=== PATIENT | male | born 1950 | race Caucasian/White ===

== ENCOUNTER → 2019-08-11 | Outpatient (CLI) | payer MEDICARE | END | disposition home or self-care (01) | LOC: RAH 10:17 | PROVIDERS: ATTEND Orthopaedic Surgery | DX: M19.012 Primary osteoarthritis, left shoulder (principal); M75.102 Unspecified rotator cuff tear or rupture of left shoulder, not specified as traumatic | CPT/HCPCS: 73221 ==

== ENCOUNTER 2023-08-25 07:46 | Emergency (ER) | payer MEDICARE ==
[~2023-08-25] VITALS: Ht 175.3 cm; Wt 72.6 kg
[2023-08-25] MEDS: KETOROLAC 30MG VIAL (30MG/ML) IM ONE (07:57)
[2023-08-25] MEDS ORDERED: DICL20GE TP (08:26)
[2023-08-25 09:02] VITALS: BP 133/86; PULSE 84; RESP 18; O2SAT 98
== END 2023-08-25 08:40 | disposition home or self-care (01) ==
LOC: EDH 07:46
DX: S86.811A Strain of other muscle(s) and tendon(s) at lower leg level, right leg, initial encounter (principal); E11.9 Type 2 diabetes mellitus without complications; J44.9 Chronic obstructive pulmonary disease, unspecified; X58.XXXA Exposure to other specified factors, initial encounter; Y93.89 Activity, other specified; Y92.89 Other specified places as the place of occurrence of the external cause; Y99.8 Other external cause status
CPT/HCPCS: 99283; 29505; 73562; 96372; J1885

== ENCOUNTER 2024-07-17 15:29 | Emergency (ER) | payer MEDICARE ==
[~2024-07-17] VITALS: Ht 175.3 cm; Wt 72.6 kg
[~2024-07-17 15:29] MED LIST: DICL20GE TP
[2024-07-17 16:17] VITALS: BP 108/60; PULSE 95; RESP 16; TEMP 98.3; O2SAT 98
[2024-07-17] MEDS: ORPHENADRINE 60MG/2ML IM ONE (16:57)
[2024-07-17] MEDS: morPHINE 2 MG SYG IM ONE (16:57)
[2024-07-17] MEDS ORDERED: METH-662 PO (17:09)
[2024-07-17] MEDS ORDERED: ACET-2893 PO (17:09)
--- NOTE | 2024-07-17 17:11 | ERN ---
General Chief Complaint: Low Back Pain/Injury Stated Complaint: LOWER BACK PAIN Time Seen by MD: 15:38 Time Seen by Midlevel: 15:38 Source: patient History of Present Illness Initial Comments The patient is a 74-year-old male presenting to the emergency department for evaluation of left lower back pain. Patient states he was doing some yd work yesterday when he started to developed the pain. The pain worsened today so he decided to report to the ER for further evaluation. Denies any urinary/bowel incontinence. Denies any focal weakness. Denies any numbness or tingling to lower extremities. Allergies: Coded Allergies: No Known Allergies (Unverified Allergy, Unknown, 08/25/23) Home Meds Active Scripts Diclofenac Sodium (Voltaren Arthritis Pain) 1 % Gel..gram., 20 GM TP BID for 30 Days, #60 TUBE Prov:EDMUND HALE MD 08/25/23 Past Medical History Past Medical History: COPD, Diabetes-Type II Past Surgical History: None ROS Dictation CONSTITUTIONAL: Negative except for HPI HEAD/FACE: Negative except for HPI EENT: Negative except for HPI RESPIRATORY: Negative except for HPI GASTROINTESTINAL/ABDOMINAL: Negative except for HPI GENITOURINARY: Negative except for HPI MUSCULOSKELETAL: Negative except for HPI INTEGUMENTARY: Negative except for HPI NEUROLOGICAL/PSYCH: Negative except for HPI HEMATOLOGIC/LYMPHATIC: Negative except for HPI All Systems Negative, Except as noted above. 13 point review of systems assessed and all negative except for above. Physical Exam Physical Exam Dictation Vital Signs reviewed General Appearance: Alert, oriented x 3, no acute distress, well developed, nourished. Head and Face: non-traumatic. Eyes: PERRL, pink conjunctivas, eyelid no trauma, anterior chamber with arcus senilis. Ears: Pinnas intact and no signs of trauma or erythema ear canals clear and no discharge TM no erythema Nose: No discharge, no bleeding. Oropharynx: Mouth normal, tongue pink, pharynx clear,no erythema, tonsils no exudates, no abscesses noted, mucous membrane moist Neck: Supple, non-tender, no thyromegaly, no masses, no JVD, no bruits Breast:Deferred Chest:No tenderness, no crepitus, no paradoxical movement, no retractions Lungs:Clear, well-ventilated, symmetric, no rales, no wheezing, no rhonchi, no stridor, good breath sounds bilaterally Heart: Regular rate, regular rhythm, no murmur, no gallops Vascular: no peripheral edema, Abdomen: Soft, positive bowel sounds, nondistended, no guarding, nontender, no rebound, no masses no hepatomegaly, no splenomegaly, no Conde's sign, no hernias. Rectal: Deferred Genital: Deferred Neurological: Normal speech, motor function intact, sensory function intact Musculoskeletal: Neck nontender, full range of motion, back nontender, full range of motion, Extremities: Paraspinal muscle tenderness to the left lumbar region Skin: Color pink, dry, no turgor, no rash, no lacerations, no abrasions, no contusions. Lymphatic: Deferred MDM MDM: 74-year-old male presents with left lower lumbar pain. Pain is reproducible with movement and palpation. Patient was no red flag symptoms. Physical examination is reassuring. He was full range motion of bilateral lower extremities with no neurological deficits. No need for imaging at this time given that the patient does not report any direct injury or trauma. Denies falling. Patient was given pain medication and muscle relaxers in the ER and will be discharged home. Differential diagnosis: Lumbar strain, musculoskeletal pain There are no social concerns with this patient. Prescription drug management Prescriptions will include: Robaxin Medical management and examination interpretation discussions were had by me with other qualified healthcare professionals as indicated for the patient's care. ED Course Orders Procedure Category Date Status Time Morphine 2mg Syg PHA 07/17/24 In Process (Morphine 2mg Syg) 17:00 Orphenadrine Citrate PHA 07/17/24 In Process (Norflex) 17:00 Current Medications Medications (Trade) Dose Ordered Sig/Jeronimo Route PRN Reason Start Time Stop Time Status Last Admin Dose Admin Morphine Sulfate (morPHINE 2MG SYG) 2 mg ONCE ONCE IM 07/17/24 17:00 07/17/24 17:01 Orphenadrine Citrate (Norflex) 60 mg ONCE ONCE IM 07/17/24 17:00 07/17/24 17:01 Vital Signs Date Time Temp Pulse Resp B/P (MAP) Pulse Ox O2 Delivery O2 Flow Rate FiO2 07/17/24 16:17 98.2 95 16 108/60 98 Room Air* 0 21 07/17/24 15:31 99.1 98 18 109/60 98 0 DX & DISP Disposition: Discharge Departure Impression: Primary Impression: Lumbar strain Condition: Stable Scripts Acetaminophen (Acetaminophen ER) 650 Mg Tablet.er 1 TAB PO TID for 10 Days, #30 TAB 0 Refills Prov: YUDELKA CAREY 07/17/24 Methocarbamol (Robaxin) 750 Mg Tab 1 TAB PO TID for 10 Days, #30 TAB 0 Refills Prov: YUDELAK CAREY 07/17/24 Referrals: LINDA BONILLA MD (PCP) I have reviewed the case, and I agree with, Diagnosis and Plan I performed the substantive portion of the visit. I have reviewed and personally made and approve the management plan that is documented in the note by myself or the ELDER. I acknowledge for responsibility for the patient's management plan. YUDELKA CAREY Jul 17, 2024 17:11
== END 2024-07-17 17:17 | disposition home or self-care (01) ==
LOC: EDH 15:29
DX: S39.012A Strain of muscle, fascia and tendon of lower back, initial encounter (principal); E11.9 Type 2 diabetes mellitus without complications; J44.9 Chronic obstructive pulmonary disease, unspecified; Z79.1 Long term (current) use of non-steroidal anti-inflammatories (NSAID); X58.XXXA Exposure to other specified factors, initial encounter; Y93.89 Activity, other specified; Y92.89 Other specified places as the place of occurrence of the external cause; Y99.8 Other external cause status
CPT/HCPCS: 99284; 96372 ×2; J2270; J2360